=== PATIENT | male | born 1950 | race Caucasian/White ===

== ENCOUNTER → 2016-04-17 | Outpatient (CLI) | payer MEDICARE, BC ==
[~2016-04-17] MED LIST: AGGRENOX PO; ALBUTEROL17 GM INH; ALLEGRA ALLERG180 MG PO; ALLEGRA180 MG PO; ALLEGRA30 MG/5 ML PO; ARISTOCORT A 0.15 G1 TOP; ASACOL400 MG PO; ASPIRIN PO; ASTELIN137 MCG; ASTELIN137 MCG INH; ATARAX PO; BACITRACIN/POLY30 GM TOP; BACTRIM 400-801 TA1 PO; BACTRIM DS TABL1 TAB PO; BACTROBAN15 GM TOP; BENTYL20 MG PO; BUDEPRION SR100 M1 PO; CARAFATE PO; CARAFATE1 GM PO; CENTRUM PO; CLIDINIUM-CDP C1 CAP PO; CRESTOR PO; DICLOFENAC PO; DICYCLOMINE HCL20 MG PO; DIFLUCAN PO; DIOVAN HCT 160/1 TAB PO; DIOVAN HCT 1601 EACH PO; DIOVAN PO; DOXYCYCLINE PO; EFFEXOR75 MG PO; ENTOCORT EC3 MG PO; FAMOTIDINE PO; FLAGYL PO; FLAXSEED OIL1000 M1 PO; FLEXERIL10 MG PO; FLOMAX0.4 M1 PO; FLOMAX0.4 MG PO; FLONASE 0.05% N16 G1; FLUTICASONE; HUMIRA IM; HUMIRA40 MG/0.1 SQ; HYDROCODON-ACE1 EAC5 PO; HYDROCODONE/APA1 T16 PO; LIPITOR40 MG PO; LODRANE 121 TAB.SR . PO; LODRANE 241 CAP.SR . PO; LOMOTIL TABLET1 TAB PO; LORTAB 7.5-5001 TAB PO; LOSARTAN POTASS50 MG PO; LOSARTIN; LUNESTA PO; METOPROLOL ER SUCC PO; MOBIC PO; MULTI-DAY VITAM1 TAB PO; MYCELEX15 GM TOP; NEURONTIN100 MG PO; NEXIUM PO; NIASPAN1000 MG PO; NORVASC PO; PANTOPRAZOLE SO40 MG PO; PENTASA PO; PERCOCET 10/3251 TAB PO; PHENERGAN PO; PHENERGAN25 M1 PO; PLAVIX PO; PLAVIX300 MG PO; PREDNISONE PO; PROTONIX PO; PROVENTIL IH; PURINETHOL50 MG PO; RAPAFLO8 MG PO; RIFAMPIN300 MG PO; SANTYL OINTMENT; SERTRALINE HCL100 M1 PO; SERTRALINE HCL50 M1 PO; SPIRIVA HANDIHALER PO; TALADINE150 MG PO; TRAMADOL HCL50 M1 PO; TRAMADOL HCL50 M2 PO; TYLENOL #3 PO; VERAPAMIL HCL120 MG PO; VITAL-D RX TABL1 TAB PO; VITAMIN D2000 UNI1 PO; VITAMIN D32000 UNIT PO; ZANTAC PO; ZOCOR PO; ZOLOFT PO; ZOLOFT50 MG PO; ZOLPIDEM TARTRA10 MG PO; ZYRTEC10 M2 PO; [UNRECOGNIZED DRUG - OTHER]; [UNRECOGNIZED DRUG - OTHER]
--- NOTE | ~2016-04-17 | US85 ---
[facility] A Service of [facility] & [facility] RADIOLOGY TEXT RESULTS PATIENT: SOLOMON ORR LOCATION: CNIV : 48 UNIT #: [id number] AGE: [address]: Brigid Amanda APRN SEX: M ORDER DR: [id number] [facility] [address] [place], [place] [address] [id number] O MR#: [id number] Acc #: [id number] NAME: SOLOMON ORR : 1950 SEX: M STUDY DATE/TIME: 04/17/2016 16:32 UNIT: CNIV ROOM: STUDY DESCRIPTION: [facility] Stdy Attending Physician: Brigid Amanda A.P.R.N. Referring Physician: Brigid Amanda A.P.R.N. Ordering Physician: Brigid Amanda A.P.R.N. Primary Care Physician: Hayder Diaz D.O. MEDICAL IMAGING REPORT This report is preliminary unless electronic signature is present EXAM Unilateral right lower extremity venous Doppler, 04/17/2016. CLINICAL HISTORY Right leg and groin pain for 3 weeks. Recent open-heart surgery currently taking Plavix for anticoagulation. TECHNIQUE Venous ultrasound examination of the right lower extremity was performed using grayscale, spectral Doppler and color flow Doppler imaging. FINDINGS The examination is negative. There is no evidence of right lower extremity deep venous thrombus from the groin to the lower calf. Visualized greater saphenous vein is also patent. IMPRESSION Negative examination. No evidence of right lower extremity deep venous thrombosis. STAT * RESULT Dictated by... Michoacano Ladd M.D. THIS IS AN ELECTRONICALLY VERIFIED REPORT Michoacano Ladd M.D. at 04/18/2016 11:45 AM TEV/lannyw TD: 04/17/2016 16:53 JOB #: [id number] [facility] A Service of [facility] & [facility] RADIOLOGY TEXT RESULTS PATIENT: SOLOMON ORR LOCATION: CNIV : 48 UNIT #: [id number] AGE: [address]: Brigid Amanda APRN SEX: M ORDER DR: MEDICAL IMAGING REPORT COPY
== END | disposition home or self-care (01) ==
LOC: CNIV 15:52
DX: R10.31 Right lower quadrant pain (principal); M79.604 Pain in right leg
CPT/HCPCS: 93971

== ENCOUNTER → 2016-06-19 | Outpatient (CLI) | payer MEDICARE, BC ==
--- NOTE | ~2016-06-19 | MR17 ---
[facility] A Service of [facility] & [facility] RADIOLOGY TEXT RESULTS PATIENT: SOLOMON ORR LOCATION: [facility] : 48 UNIT #: [id number] AGE: [address]: WILLIAN WHALEY DO SEX: M ORDER DR: [id number] [place] [id number] O MR#: [id number] Acc #: [id number] NAME: SOLOMON ORR : 1950 SEX: M STUDY DATE/TIME: 06/19/2016 11:07 UNIT: [facility] ROOM: STUDY DESCRIPTION: MR Brain WWo Contrast Attending Physician: Willian Whaley D.O. Referring Physician: Willian Whaley D.O. Ordering Physician: Willian Whaley D.O. Primary Care Physician: Willian Whaley D.O. MRI CENTER REPORT This report is preliminary unless electronic signature is present. EXAM MRI of the brain with without HISTORY Memory loss. No known injury or surgery. Increasing memory loss, expressive for a month; ataxia for a year; history of cancer, type not specified otherwise. COMMENT MRI of the brain was performed prior to and following intravenous administration of 20 mL of MultiHance on a 1.5T wide bore system. COMPARISON 10/29/2014 FINDINGS There is a punctate focus of possibly restricted diffusion in the left posterior centrum semiovale. There is vague signal abnormality on T2 and FLAIR imaging, but no enhancement, mass effect or evidence for hemorrhage. I suspect it is a recent tiny small vessel insult. It is superimposed upon a background of moderate preexisting probable sequelae of small vessel disease with most focal involvement seen in the left sided louis radiata and extending into the superior left basal ganglia. These changes are chronic. There is generalized atrophy. There are chronic lacunes and/or prominent perivascular spaces in bilateral basal ganglia. There is chronic lacunar disease in the kannan, asymmetrically worse on the left side. Major intracranial flow voids are maintained. Mastoid air cells are clear. Mild mucosal disease in the paranasal sinuses. No sinus air-fluid level. No MRI evidence for intracranial hemorrhage. Following contrast administration, there is punctate focus of enhancement seen in the left posterior frontal cortex. There is not definite restricted diffusion. There is no mass effect. It is new from previous. I suspect it is a tiny focus of now subacute ischemia. Please correlate for [facility]. [facility] [place] Service of [facility] & [facility] RADIOLOGY TEXT RESULTS PATIENT: SOLOMON ORR LOCATION: [facility] : 48 UNIT #: [id number] AGE: [address]: WILLIAN WHALEY DO SEX: M ORDER DR: clinical evidence of thromboembolus source. Suggest followup study in 6-8 weeks to insure that the enhancement resolves. Efforts underway to reach ordering physician at this time to relay information verbally as well. No additional areas of pathologic intracranial enhancement. No intracranial mass effect or hemorrhagic transformation. IMPRESSION 1. Punctate focus of restricted diffusion in the left posterior frontal centrum semiovale probably due to a recent tiny small vessel insult. 2. Punctate focus of enhancement seen in the left posterior frontal cortex motor cortex region probably an area of now subacute ischemia possibly due to thromboembolic disease. 3. Preexisting probable sequelae of small vessel disease most focally involving the left basal ganglia to louis radiata, unchanged. 4. I would recommend that the patient undergo further evaluation for possible etiology of stroke both small vessel and thromboembolic at this time. I would recommend followup MRI brain with and without contrast in 6-8 weeks to insure resolution of the punctate focus of enhancement and to exclude the possibility of infectious inflammatory or neoplastic disease. These entities are all felt less likely given the constellation of findings taken together. STAT * RESULT I spoke to Dr. Whaley. Dictated by... Moni Ponce M.D. THIS IS AN ELECTRONICALLY VERIFIED REPORT Moni Ponce M.D. at 06/20/2016 3:47 PM SAC/to TD: 06/20/2016 12:52 JOB #: [id number] MRI CENTER REPORT Page 1 of 1
[2016-06-19 16:00] LABS: POC - CREATININE 1.13 mg/dL (0.64-1.27); POC - GFR >60.0 mL/min (>60)
== END | disposition home or self-care (01) ==
LOC: SMRI 10:28
PROVIDERS: Family Medicine
DX: R41.3 Other amnesia (principal); R47.01 Aphasia; R27.0 Ataxia, unspecified
CPT/HCPCS: 70553; 82565; A9581

== ENCOUNTER → 2016-07-31 | Outpatient (CLI) | payer MEDICARE, BC ==
--- NOTE | ~2016-07-31 | CT57 ---
[facility] A Service of [facility] RADIOLOGY TEXT RESULTS PATIENT: SOLOMON ORR LOCATION: [facility] : 48 UNIT #: [id number] AGE: [address]: Soren Christina MD SEX: M ORDER DR: [id number] [place] [id number] O MR#: [id number] Acc #: [id number] NAME: SOLOMON ORR : 1950 SEX: M STUDY DATE/TIME: 07/31/2016 9:42 UNIT: SCT ROOM: STUDY DESCRIPTION: CT Chest Wo Cont Attending Physician: Soren Christina M.D. Referring Physician: Soren Christina M.D. Ordering Physician: Soren Christina M.D. Primary Care Physician: Hayder Diaz D.O. MEDICAL IMAGING REPORT This report is preliminary unless electronic signature is present. EXAM CT chest without contrast. INDICATIONS Pneumonia and December through March 2016. Followup. PROCEDURE Unenhanced CT chest. This CT exam was performed with one or more of the following radiation dose reduction techniques: automatic exposure control, adjustment of mA and/or kV according to patient size, and iterative reconstruction. COMPARISON 03/13/2016. FINDINGS No dense consolidation. Tree-in-bud nodularity in both lower lobes, subtly persistent, but significantly improved. Previously demonstrated alveolar opacities have resolved. No adenopathy. Previous CABG. Hepatic steatosis. No acute findings are seen in the included upper abdomen. No aggressive appearing bone lesion. IMPRESSION 1. No new dense consolidation. Previously demonstrated alveolar opacities have resolved. There is some subtle persistent tree-in-bud nodularity in both lower lobes, but also significantly improved from the prior. This could represent chronic post infectious or inflammatory change or persistent chronic small airways disease. 2. Hepatic steatosis. 3. Not mentioned above, stable probable partial nephrectomy change in the right kidney. [facility] A Service of [facility] & [facility] RADIOLOGY TEXT RESULTS PATIENT: SOLOMON ORR LOCATION: [facility] : 48 UNIT #: [id number] AGE: [address]: Soren Christina MD SEX: M ORDER DR: Dictated by... Jason Haskins M.D. THIS IS AN ELECTRONICALLY VERIFIED REPORT Jason Haskins M.D. at 08/01/2016 2:02 PM EED/justin TD: 07/31/2016 14:58 JOB #: [id number] MEDICAL IMAGING REPORT Page 1 of 1
== END | disposition home or self-care (01) ==
LOC: SCT 09:31
DX: R93.8 Abnormal findings on diagnostic imaging of other specified body structures (principal); R91.1 Solitary pulmonary nodule; K76.0 Fatty (change of) liver, not elsewhere classified
CPT/HCPCS: 71250

== ENCOUNTER → 2016-10-29 | Outpatient (CLI) | payer MEDICARE, BC ==
[2016-10-29 09:01] LABS: HEMATOCRIT 40.2 % (38.0-50.0); HEMOGLOBIN 13.4 gm/dL (13.0-16.0); MEAN CELL VOLUME 86.9 FL (83-96); MEAN CORPUSCULAR HGB CONC 33.4 g/dL (30-36); MEAN PLATELET VOLUME 7.8 FL (6.5-11.5); RED BLOOD COUNT 4.62 X10e (3.90-5.60); RED CELL DISTRIBUTION WIDTH 15.2 % (11.0-15.5); WHITE BLOOD COUNT 6.9 X10e3 (4.0-10.5)
[2016-10-29 10:28] LABS: ALBUMIN SERUM 3.9 g/dL (3.5-5.0); BILIRUBIN,TOTAL 0.2 mg/dL (0.2-2.0); BUN/CREATININE RATIO 15.45; CALCIUM SERUM 8.8 mg/dL (8.4-10.2); CREATININE SERUM 1.1 mg/dL (0.6-1.4); GLOM FILT RATE Estimated 68.6 mL/min (>60); POTASSIUM 3.9 mmol/L (3.5-5.1); PROTEIN TOTAL SERUM 6.8 g/dL (6.0-8.3)
== END | disposition home or self-care (01) ==
LOC: CLAB 08:42
PROVIDERS: Internal Medicine
DX: K50.90 Crohn's disease, unspecified, without complications (principal)
CPT/HCPCS: 36415; 80053; 85027